=== PATIENT | male | born 1965 | race Hispanic/Latino ===

== ENCOUNTER 2017-07-19 22:02 | Emergency (ER) | payer SELFPAY ==
[2017-07-19 22:06] VITALS: TEMP 98.2
--- NOTE | 2017-07-19 23:26 | ED PDOC ---
HPI: General Adult Time Seen by Provider: 07/19/17 22:33 Chief Complaint (Nursing): Medical Clearance History Per: Patient Additional Complaint(s): Pt. brought in by [employer] for medical/psychiatric clearance for incarceration. Pt. is uncooperative and is verbally abuse to staff. Pt. is refusing to answer questions. Past Medical History Reviewed: Historical Data, Nursing Documentation, Vital Signs Vital Signs: Last Vital Signs Temp 98.2 F 07/19/17 22:04 Pulse 70 07/20/17 05:53 Resp 18 07/19/17 22:04 BP 130/100 H 07/19/17 22:04 Pulse Ox 100 07/20/17 05:53 - Family History Family History: States: No Known Family Hx - Allergies Allergies/Adverse Reactions: Allergies Allergy/AdvReac Type Severity Reaction Status Date / Time No Known Allergies Allergy Verified 07/19/17 22:07 Review of Systems Review Of Systems: ROS cannot be obtained secondary to pt's inabilty to answer questions. Physical Exam - Reviewed Nursing Documentation Reviewed: Yes Vital Signs Reviewed: Yes - Physical Exam Appears: Positive for: Well, Non-toxic, No Acute Distress Head Exam: Positive for: NORMOCEPHALIC. Negative for: ATRAUMATIC (superficial abrasion noted on L parietal scalp), NORMAL INSPECTION Skin: Positive for: Normal Color, Warm, DRY Eye Exam: Positive for: EOMI, Normal appearance, PERRL ENT: Positive for: Normal ENT Inspection, TM Is/Are (no hemotympanum b/l) Neck: Positive for: Normal, Painless ROM Cardiovascular/Chest: Positive for: Regular Rate, Rhythm, Chest Non Tender Respiratory: Positive for: CNT, Normal Breath Sounds Gastrointestinal/Abdominal: Positive for: Normal Exam, Bowel Sounds, Soft. Negative for: Tenderness Back: Positive for: Normal Inspection Extremity: Positive for: Normal ROM Neurologic/Psych: Positive for: Alert, Oriented, Mood/Affect (uncooperative). Negative for: Aphasia, Facial Droop - Laboratory Results Result Diagrams: 07/20/17 01:52 07/20/17 01:52 - ECG ECG: Positive for: Interpreted By Me ECG Rhythm: Positive for: Sinus Rhythm. Negative for: ST/T Changes Rate: 70 O2 Sat by Pulse Oximetry: 100 - Radiology X-Ray: Interpreted by Me (CXR) X-Ray Interpretation: No Acute Disease - Progress ED Course And Treament: Labs ordered. CT head w/o contrast, crisis evaluation ordered. Pt. continues to be verbally abusive to medical staff and is refusing to have blood work and imaging done. Ativan 2mg IM, haldol 5mg IM ordered. 0000 Sleeping comfortably and in no distress. 0136 CT head w/o contrast: nothing acute 0420 Still sleeping. 0600 No distress. Sleeping comfortably. Pending crisis evaluation. Disposition - Clinical Impression Clinical Impression: Aggressive behavior, Medical clearance for incarceration, Head injury - Patient ED Disposition Is Patient to be Admitted: No (At 0600 Dr. Ross continued care.) - Disposition Disposition Time: 06:00 Condition: STABLE Forms: [facility] (Albanian)
--- NOTE | 2017-07-20 01:36 | CT ---
EXAM: CT Head Without Intravenous Contrast CLINICAL HISTORY: 51 years old, male; Injury or trauma; Fall; Initial encounter; Blunt trauma (contusions or hematomas); Without loss of consciousness TECHNIQUE: Axial computed tomography images of the head/brain without intravenous contrast. All CT scans at this facility use one or more dose reduction techniques, viz.: automated exposure control; ma/kV adjustment per patient size (including targeted exams where dose is matched to indication; i.e. head); or iterative reconstruction technique. Coronal and sagittal reformatted images were created and reviewed. COMPARISON: No relevant prior studies available. FINDINGS: Brain: Unremarkable. No significant white matter disease. No edema. No intracranial mass, mass effect, or midline shift. Ventricles: Unremarkable. No ventriculomegaly. Bones/joints: Unremarkable. No acute fracture. Soft tissues: Unremarkable. Sinuses: Unremarkable as visualized. No acute sinusitis. Mastoid air cells: Unremarkable as visualized. No mastoid effusion. IMPRESSION: No acute intracranial abnormality.
[2017-07-20 01:55] LABS: BASO % 0.5 % (0.0-2.0); EOS # 0.2 K/uL (0.0-0.7); HEMOGLOBIN 12.7 g/dL (12.0-18.0); LYMPH # 3.7 K/uL (1.0-4.3); LYMPH % 42.7 % (20.0-40.0); MEAN CELL VOLUME 89.1 fl (80.0-94.0); MEAN CORPUSCULAR HEMOGLOBIN 29.2 pg (27.0-31.0); MEAN CORPUSCULAR HGB CONC 32.7 g/dL (33.0-37.0); MEAN PLATELET VOLUME 8.1 fl (7.2-11.7); MONO # 0.8 K/uL (0.0-0.8); NEUT % 45.8 % (50.0-75.0); RBC 4.35 Mil/uL (4.40-5.90); RED CELL DISTRIBUTION WIDTH 13.6 % (11.5-14.5); WHITE BLOOD COUNT 8.7 K/uL (4.8-10.8)
[2017-07-20 02:10] LABS: ALB/GLOB RATIO 1.3 (1.0-2.1); ALBUMIN 3.7 g/dL (3.5-5.0); ALT/SGPT 74 U/L (21-72); AST/SGOT 69 U/L (17-59); BLOOD UREA NITROGEN 9 mg/dl (9-20); CALCIUM 8.5 mg/dL (8.4-10.2); GFR AFRICAN-AMERICAN > 60; GFR NON-AFRICAN AMERICAN > 60
[2017-07-20 06:50] VITALS: BP 129/95; PULSE 80; RESP 19; O2SAT 98
--- NOTE | 2017-07-20 09:51 | RAD ---
HISTORY: clearance COMPARISON: No prior. FINDINGS: LUNGS: No active pulmonary disease. PLEURA: No significant pleural effusion identified, no pneumothorax apparent. CARDIOVASCULAR: Cardiomegaly without pulmonary vascular derangement appreciable. OSSEOUS STRUCTURES: No significant abnormalities. VISUALIZED UPPER ABDOMEN: Normal. OTHER FINDINGS: None. IMPRESSION: Cardiomegaly is noted however there is no definite pulmonary vascular derangement. There is no obvious infiltrate or pleural effusion either. Clinically correlate further.
--- NOTE | 2017-07-20 17:16 | CARD ---
APPROVED REPORT EKG Measurement Heart [id number] <Conclusion> Normal sinus rhythm Pulmonary disease pattern Left anterior fascicular block Abnormal ECG
== END 2017-07-20 06:50 ==
LOC: H.ER 22:02
DX: S09.90XA Unspecified injury of head, initial encounter (principal); Y92.89 Other specified places as the place of occurrence of the external cause; F98.9 Unspecified behavioral and emotional disorders with onset usually occurring in childhood and adolescence
CPT/HCPCS: 70450; 71045; 80053; 85025; 93005; 96372; 99281; G0480; J1630; J2060